=== PATIENT | female | born 1935 | race Caucasian/White ===

== ENCOUNTER 2019-01-27 16:49 | Inpatient (IN) | payer SELFPAY ==
[~2019-01-27 16:49] MED LIST: ISOVUE-370 76%-LOCM 1 ML ONE
[2019-01-27 17:10] LABS: #Eosinphils 0.1 thou/uL (0.0-0.7); #Lymphocytes 2.1 thou/uL (1.20-3.40); #Monocytes 0.7 thou/uL (0.11-0.59); #Neutrophils 3.9 thou/uL (1.40-6.50); %Basophils 0.1 % (0.0-1.0); %Eosinophils 1.2 % (0.0-10.0); %Lymphocytes 31.1 % (21.0-51.0); %Monocytes 10.1 % (0.0-10.0); %Neutrophils 57.5 % (42.0-75.0); Hemoglobin 11.3 g/dL (12.0-16.0); Mean Corpuscular HGB CONC 32.7 g/dL (32.0-36.0); Mean Corpuscular Hemoglobin 30.8 pg (27.0-31.0); Mean Corpuscular Volume 94.2 fL (78.0-98.0); Mean Platelet Volume 7.1 fL (7.4-10.4); Platelet Count 201 thou/uL (130-400); RBC Distribution Width 12.3 % (11.5-14.5); Red Blood Cell (RBC) Count 3.67 mill/uL (4.20-5.40); White Blood Cell (WBC) Count 6.9 thou/uL (4.8-10.8)
[2019-01-27 17:15] LABS: Prothrombin Time 13.4 SEC (12.0-14.7)
[2019-01-27 17:16] LABS: PTT 26.9 SEC (22.9-36.1)
[2019-01-27 17:33] LABS: ALT (SGPT) 14 U/L (8-55); AST (SGOT) 24 U/L (5-34); Albumin 3.6 g/dL (3.4-4.8); Alkaline Phosphatase 79 U/L (40-150); Anion Gap 12 mmol/L (10-20); BUN (Urea Nitrogen) 20 mg/dL (9.8-20.1); Bilirubin, Total 0.5 mg/dL (0.2-1.2); CK (CPK) 222 U/L (29-168); Calc. Creatinine Clearance 0 mL/min (70-130); Calcium 8.8 mg/dL (7.8-10.44); Carbon Dioxide 21 mmol/L (23-31); Chloride 103 mmol/L (98-107); Estimated GFR-MDRD 48; Glucose 101 mg/dL (83-110); Protein, Total 6.6 g/dL (6.0-8.3); Sodium 132 mmol/L (136-145)
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
--- NOTE | 2019-01-27 19:09 | CT ---
EXAM: CHEST, ABDOMEN, AND PELVIC CT SCAN WITH IV CONTRAST THORACIC SPINE CT SCAN WITH IV CONTRAST LIMITED LUMBAR SPINE CT SCAN WITH IV CONTRAST LIMITED 01/27/19 FINDINGS: Chest, abdomen and pelvic CT scan with IV contrast. No evidence of pneumothorax. The aorta appears unremarkable. No mediastinal hematoma. No significant acute posttraumatic process in the chest. In the abdomen, there are multiple low attenuation circumscribed foci within the liver, evidence for some cysts as well as oms e low attenuation foci with some globular mostly peripheral enhancement wit hin the right lobe of the liver. The largest of these measures 4.4 cm. I favor these being benign cav ernous hemangiomas. The gallbladder is full of gallstones and possibly some sludge. Pancreas and spleen are unremarkable. Small liver cysts and a tiny right renal nonobstructing calculus with minimal dilatation of the righ t upper collecting system but without evidence for acute obstruction. There is a focal dilated bow el structure in the right mid abdomen measuring 4.7 cm in size containing air and fluid which appears to represent a small bowel diverticulum. No free intraperitoneal fluid. No retroperitoneal hematoma. IMPRESSION: No evidence for acute posttraumatic process in the chest, abdomen or pelvis. Multiple cavernous heman giomas within the liver up to 4.4 cm. Multiple gallstones. Small bowel diverticulum. THORACIC SPINE CT SCAN WITH IV CONTRAST LIMITED: FINDINGS/IMPRESSION: Bone demineralization. Generalized spondylosis. No acute fracture or dislocation. LUMBAR SPINE CT SCAN WITH IV CONTRAST LIMITED: FINDINGS/IMPRESSION: Multilevel bone demineralization and spondylosis. Minimal grade I anterolisthesis of L4 on L5 with mo derate to severe central canal stenosis. No fracture or dislocation. Findings discussed with Dr. Gilmore at 5:36 p.m. Code CR POS: [facility]
[2019-01-27] MEDS ORDERED: Metoprolol Tartrate 5 MG/5 ML VIAL ONE (19:28)
[2019-01-27] MEDS ORDERED: Ondansetron ODT 4 MG TAB SL PRN (21:20)
[2019-01-27] MEDS ORDERED: Ondansetron PF 4 MG/2 ML Vial IVP PRN (21:20)
[2019-01-27 21:25] VITALS: BMI 21.8
[2019-01-27] MEDS ORDERED: Acetaminophen 650 MG Suppository PR PRN (22:31)
[2019-01-27 23:40] LABS: Troponin I 0.044 ng/mL (< 0.028)
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
[2019-01-28 06:13] LABS: #Basophils 0.1 thou/uL (0.0-0.2); #Eosinphils 0.1 thou/uL (0.0-0.7); #Lymphocytes 1.8 thou/uL (1.20-3.40); #Monocytes 0.6 thou/uL (0.11-0.59); #Neutrophils 3.1 thou/uL (1.40-6.50); %Eosinophils 2.1 % (0.0-10.0); %Lymphocytes 31.4 % (21.0-51.0); %Monocytes 10.3 % (0.0-10.0); %Neutrophils 55.2 % (42.0-75.0); Hemoglobin 11.2 g/dL (12.0-16.0); Mean Corpuscular HGB CONC 33.6 g/dL (32.0-36.0); Mean Corpuscular Hemoglobin 31.6 pg (27.0-31.0); Mean Corpuscular Volume 94.2 fL (78.0-98.0); Mean Platelet Volume 6.9 fL (7.4-10.4); Platelet Count 194 thou/uL (130-400); RBC Distribution Width 12.3 % (11.5-14.5); Red Blood Cell (RBC) Count 3.55 mill/uL (4.20-5.40); White Blood Cell (WBC) Count 5.6 thou/uL (4.8-10.8)
[2019-01-28] MEDS: Acetaminophen 325 MG TAB PO PRN ×2 (06:30→20:26)
[2019-01-28 06:32] LABS: Anion Gap 8 mmol/L (10-20); BUN (Urea Nitrogen) 16 mg/dL (9.8-20.1); Calc. Creatinine Clearance 48 mL/min (70-130); Calcium 8.5 mg/dL (7.8-10.44); Carbon Dioxide 24 mmol/L (23-31); Chloride 106 mmol/L (98-107); Estimated GFR-MDRD 62; Glucose 90 mg/dL (83-110); Potassium 4.1 mmol/L (3.5-5.1); Sodium 134 mmol/L (136-145)
[2019-01-28] MEDS ORDERED: Aspirin 81 mg Enteric Coated Tablet PO SCH (09:00)
[2019-01-28] MEDS ORDERED: Enoxaparin Sodium 40 MG/0.4 ML SYRINGE SC SCH (09:00)
[2019-01-28] MEDS ORDERED: Enoxaparin Sodium 60 MG/0.6 ML SYRINGE SC SCH (09:15)
[2019-01-28] MEDS ORDERED: traMADol HCl 50 MG TAB PO PRN ×2 (09:27→09:48)
[2019-01-28] MEDS ORDERED: Dronedarone HCl 400 MG TAB PO SCH (10:15)
[2019-01-28] MEDS: Dronedarone HCl 400 MG TAB PO SCH (16:30)
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
[2019-01-28] MEDS: Enoxaparin Sodium 60 MG/0.6 ML SYRINGE SC SCH (20:13)
[2019-01-29] MEDS: Enoxaparin Sodium 60 MG/0.6 ML SYRINGE SC SCH ×2 (09:42→20:26)
[2019-01-29] MEDS: Dronedarone HCl 400 MG TAB PO SCH (09:57)
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
[2019-01-30 05:06] LABS: #Eosinphils 0.1 thou/uL (0.0-0.7); #Lymphocytes 1.4 thou/uL (1.20-3.40); #Monocytes 0.6 thou/uL (0.11-0.59); #Neutrophils 3.3 thou/uL (1.40-6.50); %Basophils 0.5 % (0.0-1.0); %Eosinophils 2.3 % (0.0-10.0); %Lymphocytes 25.8 % (21.0-51.0); %Monocytes 11.2 % (0.0-10.0); %Neutrophils 60.2 % (42.0-75.0); Hemoglobin 11.8 g/dL (12.0-16.0); Mean Corpuscular HGB CONC 33.2 g/dL (32.0-36.0); Mean Corpuscular Hemoglobin 31.8 pg (27.0-31.0); Mean Corpuscular Volume 95.7 fL (78.0-98.0); Mean Platelet Volume 7.3 fL (7.4-10.4); Platelet Count 193 thou/uL (130-400); RBC Distribution Width 12.2 % (11.5-14.5); Red Blood Cell (RBC) Count 3.72 mill/uL (4.20-5.40); White Blood Cell (WBC) Count 5.5 thou/uL (4.8-10.8)
[2019-01-30 05:24] LABS: Anion Gap 11 mmol/L (10-20); BUN (Urea Nitrogen) 19 mg/dL (9.8-20.1); Calc. Creatinine Clearance 34 mL/min (70-130); Calcium 8.6 mg/dL (7.8-10.44); Carbon Dioxide 25 mmol/L (23-31); Chloride 104 mmol/L (98-107); Estimated GFR-MDRD 41; Glucose 96 mg/dL (83-110); Sodium 136 mmol/L (136-145)
[2019-01-30] MEDS ORDERED: Dextrose 5 %-0.45 % NaCl 1,000 ML IV SCH (12:15)
[2019-01-30] MEDS ORDERED: PROPOFOL 200 MG/20 ML VIAL ONE (12:33)
[2019-01-30] MEDS ORDERED: PROPOFOL 20 ML ONE (15:14)
--- NOTE | 2019-01-30 16:30 | PRG ---
DATE OF SERVICE: 01/30/2019 SUBJECTIVE: Ms. Jackson underwent cardioversion today. She was in atrial flutter with a rate of 125. The transesophageal echo showed no evidence of any formed thrombus. She was given 50 joules of direct current energy and converted to sinus rhythm. OBJECTIVE: LUNGS: Clear. CARDIAC: Now, heart rate 60. No murmur, rub or gallop. ABDOMEN: Soft and nontender. EXTREMITIES: No edema. ASSESSMENT: 1. Paroxysmal atrial fibrillation. 2. Paroxysmal atrial flutter. PLAN: 1. She will go home on [place]qu[place]. 2. She will follow up with her primary biogeographer. Job ID: [id number]
[2019-01-30 16:45] VITALS: TEMP 97.4
[2019-01-30] MEDS ORDERED: Apixaban 5 MG TAB PO SCH (17:15)
[2019-01-30 18:18] VITALS: BP 134/62
[2019-01-31] MEDS ORDERED: Apixaban 5 MG TAB PO SCH (09:00)
--- NOTE | 2019-01-31 09:19 | OP ---
DATE OF PROCEDURE: 01/30/2019 PROCEDURE PERFORMED: Transesophageal echocardiogram. INDICATIONS: An 83-year-old woman with typical atrial flutter. DESCRIPTION OF PROCEDURE: The patient was taken to the PACU. The patient was sedated by Anesthesiology. A transesophageal probe was placed into the distal esophagus and stomach. Echocardiographic images were obtained. The transesophageal probe was removed. FINDINGS: 1. Normal left ventricular systolic function. 2. Left atrial enlargement. 3. Normal mitral and aortic valves. 4. Mild mitral regurgitation. 5. Mild tricuspid regurgitation. 6. No formed thrombus in the left atrium or left atrial appendage. 7. Atherosclerotic debris in the descending aorta. IMPRESSION: No formed thrombus in the left atrium or left atrial appendage. Job ID: [id number]
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
--- NOTE | 2019-02-06 18:18 | EKG ---
Test Reason : Blood Pressure : / mmHG Vent. Rate : 123 BPM Atrial Rate : 123 BPM P-R Int : 000 ms QRS Dur : 084 ms QT Int : 310 ms P-R-T Axes : 000 011 021 degrees QTc Int : 443 ms Accelerated Junctional rhythm with retrograde conduction Nonspecific ST abnormality Abnormal ECG When compared with ECG of 27-JAN-2019 19:18, (Unconfirmed) Junctional rhythm has replaced Atrial fibrillation Confirmed by FRANC TIWARI (2) on 02/06/2019 6:17:57 PM Referred By: Confirmed By:FRANC TIWARI
== END 2019-01-30 18:40 | disposition home or self-care (01) | DRG 281 ==
LOC: EDBD 16:49 → ERS 16:49 → 2SW 21:04 → OBSVTOIN 21:04
PROVIDERS: ADMIT Hospitalist; ATTEND Hospitalist
PROC: B24BZZ4 Ultrasonography of Heart with Aorta, Transesophageal (ICD-10-PCS; principal; 2019-01-30)
PROC: 5A2204Z Restoration of Cardiac Rhythm, Single (ICD-10-PCS; 2019-01-30)
DX: I48.0 Paroxysmal atrial fibrillation (principal); I21.A1 Myocardial infarction type 2; E87.1 Hypo-osmolality and hyponatremia; N17.9 Acute kidney failure, unspecified; N18.2 Chronic kidney disease, stage 2 (mild); S80.02XA Contusion of left knee, initial encounter; D63.1 Anemia in chronic kidney disease; S80.01XA Contusion of right knee, initial encounter; I25.10 Atherosclerotic heart disease of native coronary artery without angina pectoris; I48.92 Unspecified atrial flutter; D64.9 Anemia, unspecified; V89.2XXA Person injured in unspecified motor-vehicle accident, traffic, initial encounter; Y93.89 Activity, other specified; Y92.488 Other paved roadways as the place of occurrence of the external cause; Z88.2 Allergy status to sulfonamides; Z90.49 Acquired absence of other specified parts of digestive tract; Z79.01 Long term (current) use of anticoagulants
CPT/HCPCS: 36415; 70450; 71260; 72125; 74177; 80048; 80053; 82550; 83735; 84484; 85025; 85610; 85730; 86850; 86900; 86901; 92960; 93005; 93010; 93312; 96374; 96375; G0390; J1650; J2704; J3490; Q9966